=== PATIENT | male | born 1935 | race Caucasian/White ===

== ENCOUNTER → 2018-11-15 | Outpatient (REF) | payer MEDICARE, BC ==
[2018-11-15 10:08] LABS: INTERNATIONAL NORMALIZED RATIO 1.9 RATIO (0.7-1.3); PROTHROMBIN TIME 19.4 SECONDS (9.0-12.5)
[2018-11-15 10:24] LABS: CHOLESTEROL HDL RATIO 4.6 (<4.4 (CALC))
== END | disposition home or self-care (01) ==
LOC: LAB 08:57
PROVIDERS: ATTEND Internal Medicine Cardiovascular Disease
DX: I48.2 Chronic atrial fibrillation (principal); I25.10 Atherosclerotic heart disease of native coronary artery without angina pectoris; E11.59 Type 2 diabetes mellitus with other circulatory complications

== ENCOUNTER → 2018-11-23 | Outpatient (REF) | payer MEDICARE, BC ==
[2018-11-23 13:42] LABS: INTERNATIONAL NORMALIZED RATIO 2.4 RATIO (0.7-1.3); PROTHROMBIN TIME 25.1 SECONDS (9.0-12.5)
== END | disposition home or self-care (01) ==
LOC: LAB 12:59
PROVIDERS: ATTEND Internal Medicine Cardiovascular Disease
DX: I48.2 Chronic atrial fibrillation (principal)

== ENCOUNTER 2020-09-17 20:43 | Emergency (ER) | payer MEDICARE, BC ==
[~2020-09-17] VITALS: Ht 180.3 cm; Wt 100.0 kg
[2020-09-17] MEDS ORDERED: FENOFIBRATE145 MG PO (21:15)
[2020-09-17] MEDS ORDERED: METFORMIN500 M2 PO (21:15)
[2020-09-17] MEDS ORDERED: DIGOXIN0.125 MG PO (21:16)
[2020-09-17] MEDS ORDERED: FUROSEMIDE20 MG PO (21:16)
[2020-09-17] MEDS ORDERED: DICYCLOMINE10 MG PO (21:17)
[2020-09-17] MEDS ORDERED: METOPROL TAR25 MG PO (21:18)
[2020-09-17] MEDS ORDERED: RAMIPRIL2.5 MG PO (21:18)
[2020-09-17] MEDS ORDERED: NORVASC5 M1 PO (21:19)
[2020-09-17] MEDS ORDERED: SPIRONOLACTONE25 MG PO (21:19)
[2020-09-17] MEDS ORDERED: WARFARIN2 MG PO (21:20)
[2020-09-17] MEDS ORDERED: ATORVASTATIN CA10 MG PO (21:20)
[2020-09-17] MEDS ORDERED: PROBIOTIC PO (21:20)
[2020-09-17 21:28] LABS: HEMATOCRIT 32.8 % (39.0-50.0); HEMOGLOBIN 10.1 g/dl (14.0-18.0); IMMATURE GRANULOCYTES 0.3 % (0.0-5.0); MEAN CELL VOLUME 92.7 fL CALC (80.0-100.0); MEAN CORPUSCULAR HGB 28.5 pG CALC (26.0-32.0); MEAN CORPUSCULAR HGB CONC 30.8 g/dL CAL (32.0-36.0); NEUT# 5.41 thou/uL (1.82-7.42); RED BLOOD COUNT 3.54 mill/uL (4.70-6.10); RED CELL DISTRI WIDTH 14.9 % (11.5-15.5)
[2020-09-17 21:48] LABS: ALBUMIN 3.6 g/dL (3.2-5.0); ALKALINE PHOSPHATASE 54 u/l (38-126); ANION GAP 14 (6-22 (CALC)); BILIRUBIN, TOTAL 0.4 mg/dL (0.0-1.4); BUN 19 mg/dL (8-23); BUN/CREATININE RATIO 21 (12-20 (CALC)); CARBON DIOXIDE 23 mmol/l (22-30); CHLORIDE 106 mmol/l (95-108); CREATININE 0.9 mg/dL (0.7-1.3); GFR > 60 ML/MIN (>=60 (CALC)); GFR FOR AFR.AMER. > 60 ML/MIN (>=60 (CALC)); SGOT/AST 25 u/l (19-48); SODIUM 138 mmol/l (137-146); TOTAL PROTEIN 6.5 g/dL (6.3-8.2)
[2020-09-17 21:53] LABS: ACT PARTIAL THROMBO TIME 31.3 SECONDS (20.0-32.5)
[2020-09-17 22:04] LABS: INTERNATIONAL NORMALIZED RATIO 1.3 RATIO (0.7-1.3); PROTHROMBIN TIME 12.6 SECONDS (9.0-12.5)
[2020-09-17 23:15] VITALS: BP 152/70
== END 2020-09-17 23:15 | disposition home or self-care (01) ==
LOC: ED 20:43
PROC: 0HQ0XZZ Repair Scalp Skin, External Approach (ICD-10-PCS; principal; 2020-09-17)
DX: S01.01XA Laceration without foreign body of scalp, initial encounter (principal); U07.1 COVID-19; I10 Essential (primary) hypertension; E11.9 Type 2 diabetes mellitus without complications; F03.90 Unspecified dementia, unspecified severity, without behavioral disturbance, psychotic disturbance, mood disturbance, and anxiety; W01.198A Fall on same level from slipping, tripping and stumbling with subsequent striking against other object, initial encounter; Y92.000 Kitchen of unspecified non-institutional (private) residence as the place of occurrence of the external cause; Z79.84 Long term (current) use of oral hypoglycemic drugs; Z95.810 Presence of automatic (implantable) cardiac defibrillator

== ENCOUNTER 2020-09-26 12:08 | Emergency (ER) | payer MEDICARE, BC ==
[~2020-09-26] VITALS: Ht 180.3 cm; Wt 80.0 kg
[~2020-09-26 12:08] MED LIST: ATORVASTATIN CA10 MG PO; DICYCLOMINE10 MG PO; DIGOXIN0.125 MG PO; FENOFIBRATE145 MG PO; FUROSEMIDE20 MG PO; METFORMIN500 M2 PO; METOPROL TAR25 MG PO; NORVASC5 M1 PO; PROBIOTIC PO; RAMIPRIL2.5 MG PO; SPIRONOLACTONE25 MG PO; WARFARIN2 MG PO
[2020-09-26 12:39] VITALS: BP 120/71
== END 2020-09-26 12:47 | disposition home or self-care (01) ==
LOC: ED 12:08
DX: S01.01XD Laceration without foreign body of scalp, subsequent encounter (principal); I10 Essential (primary) hypertension; E11.9 Type 2 diabetes mellitus without complications; F03.90 Unspecified dementia, unspecified severity, without behavioral disturbance, psychotic disturbance, mood disturbance, and anxiety; E78.00 Pure hypercholesterolemia, unspecified; X58.XXXD Exposure to other specified factors, subsequent encounter; Z79.84 Long term (current) use of oral hypoglycemic drugs

== ENCOUNTER 2022-03-07 18:55 | Emergency (ER) | payer MEDICARE ==
[~2022-03-07] VITALS: Ht 180.3 cm; Wt 72.7 kg
[2022-03-07] VITALS (18 sets, daily range): BP systolic 108–155; BP diastolic 54–116
[2022-03-07] MEDS ORDERED: REMERON15 MG PO (19:18)
[2022-03-07] MEDS ORDERED: ARICEPT PO (19:18)
[2022-03-07 19:54] LABS: HEMATOCRIT 30.7 % (39.0-50.0); HEMOGLOBIN 9.3 g/dl (14.0-18.0); IMMATURE GRANULOCYTES 0.3 % (0.0-5.0); MEAN CELL VOLUME 96.2 fL CALC (80.0-100.0); MEAN CORPUSCULAR HGB 29.2 pG CALC (26.0-32.0); MEAN CORPUSCULAR HGB CONC 30.3 g/dL CAL (32.0-36.0); NEUT# 5.23 thou/uL (1.82-7.42); RED BLOOD COUNT 3.19 mill/uL (4.70-6.10); RED CELL DISTRI WIDTH 17.2 % (11.5-15.5)
[2022-03-07 20:10] LABS: ALKALINE PHOSPHATASE 66 u/l (38-126); AMYLASE 86 u/l (30-110); ANION GAP 10 (6-22 (CALC)); BILIRUBIN, TOTAL 0.4 mg/dL (0.0-1.4); BUN 23 mg/dL (8-23); BUN/CREATININE RATIO 21 (12-20 (CALC)); CARBON DIOXIDE 29 mmol/l (22-30); CHLORIDE 102 mmol/l (95-108); CREATININE 1.1 mg/dL (0.7-1.3); GFR FOR AFR.AMER. > 60 ML/MIN (>=60 (CALC)); GFR OTHER RACES > 60 ML/MIN (>=60 (CALC)); LIPASE 161 u/l (23-300); POTASSIUM 4.7 mmol/l (3.5-5.1); SGOT/AST 36 u/l (19-48); SODIUM 136 mmol/l (137-146); TOTAL PROTEIN 6.5 g/dL (6.3-8.2)
[2022-03-07 20:19] LABS: MYOGLOBIN 39 ng/mL (0 - 121)
[2022-03-07 20:23] LABS: DIGOXIN 1.1 ng/mL (0.8-2.0)
[2022-03-07 20:27] LABS: URINE BILIRUBIN - DIPSTICK NEGATIVE (NEGATIVE); URINE BLOOD DIPSTICK NEGATIVE (NEGATIVE); URINE COLOR YELLOW; URINE GLUCOSE - DIPSTICK NEGATIVE (NEGATIVE); URINE KETONE NEGATIVE (NEGATIVE); URINE LEUK ESTERASE NEGATIVE (NEGATIVE); URINE PH 5.5 (4.5-8.0); URINE PROTEIN - DIPSTICK NEGATIVE (NEG-TRACE); URINE UROBILINOGEN - DIPSTICK 0.2 E.U./dL (0.2)
[2022-03-07 20:29] LABS: URINE NITRITE - DIPSTICK NEGATIVE (Negative)
[2022-03-07] MEDS ORDERED: MIRALAX17 GM PO (22:44)
== END 2022-03-07 23:45 | disposition home or self-care (01) ==
LOC: ED 18:55
PROVIDERS: Emergency Medicine
DX: K59.00 Constipation, unspecified (principal); I10 Essential (primary) hypertension; E11.9 Type 2 diabetes mellitus without complications; E78.00 Pure hypercholesterolemia, unspecified; F03.90 Unspecified dementia, unspecified severity, without behavioral disturbance, psychotic disturbance, mood disturbance, and anxiety; Z95.810 Presence of automatic (implantable) cardiac defibrillator; Z20.822 Contact with and (suspected) exposure to COVID-19
CPT/HCPCS: Q9967

== ENCOUNTER 2022-05-08 16:03 | Observation (INO) | payer MEDICARE ==
[~2022-05-08] VITALS: Ht 180.3 cm; Wt 72.0 kg
[2022-05-08] VITALS (7 sets, daily range): BP systolic 93–112; BP diastolic 44–60
[~2022-05-08 16:03] MED LIST changes: +ALDACTONE25 MG PO; +ALTACE10 MG PO; +ARICEPT PO; -ATORVASTATIN CA10 MG PO; +ATORVASTATIN CA40 MG PO; -DIGOXIN0.125 MG PO; -FENOFIBRATE145 MG PO; +FENOFIBRATE160 MG PO; -FUROSEMIDE20 MG PO; +LANOXIN0.125 MG PO; +LASIX 20 MG TAB20 MG PO; +METOPROL TAR100 MG PO; -METOPROL TAR25 MG PO; +MIRALAX17 GM PO; +PROBIOTI2 PO; -PROBIOTIC PO; -RAMIPRIL2.5 MG PO; +REMERON15 MG PO; -SPIRONOLACTONE25 MG PO
--- NOTE | 2022-05-08 16:10 | NUR ---
PT TO ROOM EMS
[2022-05-08 16:40] LABS: HEMOGLOBIN 9.8 g/dl (14.0-18.0); IMMATURE GRANULOCYTES 0.3 % (0.0-5.0); MEAN CELL VOLUME 95.2 fL CALC (80.0-100.0); MEAN CORPUSCULAR HGB 29.2 pG CALC (26.0-32.0); MEAN CORPUSCULAR HGB CONC 30.6 g/dL CAL (32.0-36.0); NEUT# 5.45 thou/uL (1.82-7.42); RED BLOOD COUNT 3.36 mill/uL (4.70-6.10); RED CELL DISTRI WIDTH 16.5 % (11.5-15.5)
[2022-05-08 16:49] LABS: ALBUMIN 2.9 g/dL (3.2-5.0); ALKALINE PHOSPHATASE 99 u/l (38-126); ANION GAP 10 (6-22 (CALC)); BILIRUBIN, TOTAL 0.4 mg/dL (0.0-1.4); BUN 30 mg/dL (8-23); BUN/CREATININE RATIO 31 (12-20 (CALC)); CARBON DIOXIDE 26 mmol/l (22-30); CHLORIDE 108 mmol/l (95-108); GFR FOR AFR.AMER. > 60 ML/MIN (>=60 (CALC)); GFR OTHER RACES > 60 ML/MIN (>=60 (CALC)); POTASSIUM 4.7 mmol/l (3.5-5.1); SGOT/AST 47 u/l (19-48); SODIUM 140 mmol/l (137-146); TOTAL PROTEIN 6.5 g/dL (6.3-8.2)
[2022-05-08 16:56] LABS: INTERNATIONAL NORMALIZED RATIO 3.8 RATIO (0.7-1.3); PROTHROMBIN TIME 35.2 SECONDS (9.0-12.5)
[2022-05-08 17:01] LABS: MYOGLOBIN 88 ng/mL (0 - 121)
--- NOTE | 2022-05-08 17:08 | NUR ---
PT AWAITING CT SCAN RESULTS, PT RESTING WITH NO NEEDS, FAMILY AT BEDSIDE.
--- NOTE | 2022-05-08 18:41 | NUR ---
PT TO BE ADMITTED
--- NOTE | 2022-05-08 18:55 | NUR ---
PT IN ROOM ON MONITOR WITH FAMILY AT BEDSIDE, PENDING ADMISSION, WILL CONT TO MONITOR.
--- NOTE | 2022-05-08 20:45 | NUR ---
REPORT RECEIVED FROM Jes COATS RN
--- NOTE | 2022-05-08 20:46 | NUR ---
REPORT CALLED TO [facility] [place]
--- NOTE | 2022-05-08 20:58 | NUR ---
PATIENT ASSESMENT COMPLETED AT THIS TIME. ALERT AND ORIENTED TO SELF, KNOW HIS NAME AND , IS COFUSED AND FREQUESTLY REORIENTED TO PLACE AND SITUATION. REGULAR HEART SOIUNDS, TELE IN PLACE CURRENTLY PACED IN 70'S. CLEAR LUNG SOUNDS BILATERALLY. ACTIVE BOWEL SOUNDS, LAST BOWEL MOVENET PER PATIENT WAS THIS MORNING 05/08. NEURO CHECK COMPLETED, PER DAUGHTER AT BEDSIDE, THIS IS PATIENTS BASELINE BEHAVIOR. LACERATION TO BACK OF HEAD, PER ED RN Jes COATS NO BLEEDING NOTED UPON ARRIVAL, NO BLEEDING NOTED THROUGH CURRENT DRESSING PRESSURE DRESSING IN PLACE DUE TO THE FACT PATIENT IS CURRENTLY ON WARFARIN THERAPY, CHANGE TO BE COMPLETED Q SHIFT. #20 IN RAC FLUSHED AND PATENT, ORDER OF NORMAL SALINE AT 100ML/HR TO BE HUNG UPON PHARMACY VERIFICATION. ATTEMPTS MADE TO EDUCATE PATIENT ON PLAN OF CARE AND MEDICATIONS, PATIENT NOT INTERESTED R/T COGNITIVE STATUS. CALL LIGHT PROVIDED TO PATIENT, BED ALARM INITATED FOR SAFETY.
--- NOTE | 2022-05-08 21:04 | NUR ---
Admission Note Report Given to: TAMMY BENOIT Transported by: Wheelchair X Stretcher Transported with: X Nurse Transporter X Patent IV O2 X Practical Nursing Teacher Location: ICU X MS2 PT ADMITTED TO [facility] VIA STRETCHER ON TELE.
--- NOTE | 2022-05-08 21:30 | NUR ---
MEDICATIONS REVIEWED VIA PHNE WITH PATIENTS DAUGHTER. ALL MEDICATION DOSES AND LAST TAKEN TIMES REVIEWED AND ACCOUNTED FOR.
--- NOTE | 2022-05-08 23:00 | NUR ---
@2230 PATIENT PULLED OUT OWN IV, IV INTACT AND DISCARDED IN HSARPS CONTAINER. PER PATIENT HE DOES NOT WANT TO BE POKED, HE DOES NOT WANT ANOTHER IV, HE WILL TAKE IT OUT HE REPORTS. @2300NOTIFIED B STACEY MORA, NOT FURTHER ORDERS RECEIVED.
--- NOTE | 2022-05-08 23:22 | NUR ---
NOTIFIED RN INTERVENTIONAL THAT PATIENT WOULD LIKE TO CALL DAUGHTER AND GO HOME, PATIENT AGREED TO STAY.
[2022-05-09] VITALS (10 sets, daily range): BP systolic 103–129; BP diastolic 53–68
--- NOTE | 2022-05-09 04:00 | NUR ---
PATIENT UP USING THE RESTROOM WITH ASSITANCE X1. PATIENT ABLE TO REMEMEBR TO USE CALL LIGHT, SENIOR SALES MANAGER IN ROOM FOR ADDED SAFETY.
[2022-05-09 05:42] LABS: HEMATOCRIT 27.8 % (39.0-50.0); HEMOGLOBIN 8.6 g/dl (14.0-18.0); IMMATURE GRANULOCYTES 0.2 % (0.0-5.0); MEAN CELL VOLUME 95.2 fL CALC (80.0-100.0); MEAN CORPUSCULAR HGB 29.5 pG CALC (26.0-32.0); MEAN CORPUSCULAR HGB CONC 30.9 g/dL CAL (32.0-36.0); NEUT# 5.27 thou/uL (1.82-7.42); RED BLOOD COUNT 2.92 mill/uL (4.70-6.10); RED CELL DISTRI WIDTH 16.8 % (11.5-15.5)
[2022-05-09 05:47] LABS: INTERNATIONAL NORMALIZED RATIO 3.1 RATIO (0.7-1.3); PROTHROMBIN TIME 29.4 SECONDS (9.0-12.5)
[2022-05-09 06:01] LABS: ANION GAP 12 (6-22 (CALC)); BUN 29 mg/dL (8-23); BUN/CREATININE RATIO 29 (12-20 (CALC)); CARBON DIOXIDE 26 mmol/l (22-30); CHLORIDE 106 mmol/l (95-108); GFR FOR AFR.AMER. > 60 ML/MIN (>=60 (CALC)); GFR OTHER RACES > 60 ML/MIN (>=60 (CALC)); POTASSIUM 4.7 mmol/l (3.5-5.1); SODIUM 139 mmol/l (137-146)
--- NOTE | 2022-05-09 07:17 | NUR ---
PT RESTING IN LOW FOWLERS POSITION. A/OX2 PT AWARE OF IN HOSPITALS . PT DOES NOT KNOW MONTH. PT ABLE TO STATE NAME AND . PT ASSESSMENT AND VS COMPLETED. HEART RHYHTHM NORMAL.ON TELE PACER. BOWEL SOUNDS ACTIVE. RESPIRATIONS EVEN AND UNLABORED. NO IV SITE. COMMERCIAL AIRPLANE PILOT AWARRE. ON ROOM AIR. HEAD DRESSING CDI. ALL SAFETY PRECAUTIONS IN PLACE WITH BED ALARM ACTIVE. CALL LIGHT IN REACH,.
[2022-05-09] MEDS ORDERED: VITAMIN D32000 UNI2 PO (11:23)
[2022-05-09] MEDS ORDERED: WARFARIN SODIU2.5 M1 PO (11:23)
[2022-05-09] MEDS ORDERED: CORRECTOL100 MG PO (11:24)
[2022-05-09] MEDS ORDERED: CVS FLUTICASON50 MCG NAB (11:25)
--- NOTE | 2022-05-09 11:55 | NUR ---
PT TO BE TRANSFERED TO CT SOON AND URINE TO BE COLLECTED. ALL SAFETY PRECAUTIONS IN PLACE.
--- NOTE | 2022-05-09 13:34 | NUR ---
PT TRANSPORTED TO CT PER VOLUNTEER. ALL SAFETY PRECAUTIONS IN PLACE
--- NOTE | 2022-05-09 13:47 | NUR ---
PT ARRIVED BACK TO FLOOR .
[2022-05-09 16:12] LABS: URINE BILIRUBIN - DIPSTICK NEGATIVE (NEGATIVE); URINE BLOOD DIPSTICK NEGATIVE (NEGATIVE); URINE CLARITY CLEAR; URINE COLOR YELLOW; URINE GLUCOSE - DIPSTICK NEGATIVE (NEGATIVE); URINE KETONE NEGATIVE (NEGATIVE); URINE LEUK ESTERASE NEGATIVE (Negative); URINE NITRITE - DIPSTICK NEGATIVE (Negative); URINE PROTEIN - DIPSTICK NEGATIVE (NEG-TRACE); URINE UROBILINOGEN - DIPSTICK 0.2 E.U./dL (0.2)
--- NOTE | 2022-05-09 16:20 | NUR ---
PT RESTING IN LOW FOWLERS POSITION. ADMINISTERED MEDICATIONS AND ASSISTED TO TOILET. PT X2 ASSIST . NEW IV SITE TO LEFT FOREARM. IV FLUIDS RUNNING AT 50 . PT RESTING AT THE MOMENT. FAMILY AT BEDSIDE. PT DENIES OTHER NEEDS ALLS SAFETY PRECAUTIONS IN PLACE
--- NOTE | 2022-05-09 20:31 | NUR ---
PT SLEEPING, AWOKE TO MY VOICE. VERY [place] AND UNABLE TO ANSWER MY QUESTIONS APPROPRIATLEY/CONFUSED. SPEECH IS CLEER. DRESSING TO HEAD CDI. SAFETY MEASURES ARE IN PLACE W/BED ALARM ON.
--- NOTE | 2022-05-09 21:30 | NUR ---
PT SLEEPING AT THIS TIME. NO S/O DISTRESS NOTED. DRESSING STILL IN PLACE TO HEAD CDI. BED ALARM ON.
--- NOTE | 2022-05-10 00:14 | NUR ---
PT IS AWAKE, CHEESE SPRAYER JUST IN TO OBTAIN V/S, NO S/O DISTRESS NOTED.
--- NOTE | 2022-05-10 03:15 | NUR ---
PT REMAINS AWAKE ASKING ABOUT HIS AND WHEN HE CAN GO HOME. PT IS CONFUSED BASELINE, HE ASKED FOR COFFEE/PROVIDED ALONG W/REASSURANCE OF HIS RETURNING IN THE MORNING. PT ORIENTED TO TIME OF NIGHT AND CIRCUMSTANCE.
[2022-05-10 03:55] VITALS: BP 126/63
--- NOTE | 2022-05-10 04:13 | NUR ---
AUTO MECHANICS TEACHER IN WITH PT. HE WAS SLEEPING WE ENTERED THE ROOM. NO S/O DISTRESS NOTED. BED ALARM REMAINS ON. DRESSING TO HEAD REMAINS CDI.
[2022-05-10 05:00] LABS: HEMATOCRIT 29.6 % (39.0-50.0); HEMOGLOBIN 9.2 g/dl (14.0-18.0); IMMATURE GRANULOCYTES 0.2 % (0.0-5.0); MEAN CELL VOLUME 95.8 fL CALC (80.0-100.0); MEAN CORPUSCULAR HGB 29.8 pG CALC (26.0-32.0); MEAN CORPUSCULAR HGB CONC 31.1 g/dL CAL (32.0-36.0); NEUT# 6.88 thou/uL (1.82-7.42); RED BLOOD COUNT 3.09 mill/uL (4.70-6.10); RED CELL DISTRI WIDTH 16.7 % (11.5-15.5)
[2022-05-10 05:14] LABS: INTERNATIONAL NORMALIZED RATIO 2.5 RATIO (0.7-1.3); PROTHROMBIN TIME 23.8 SECONDS (9.0-12.5)
[2022-05-10 06:19] VITALS: BP 132/61
--- NOTE | 2022-05-10 07:26 | NUR ---
PT RESTING IN LOW FOWLERS POSITION.A/OX2 WITH CONFUSION.ASSESSMENT AND VSCOMPLETED. HEART RHYTHM PACED ON TELE. RESPIRATIONS EVEN AND UNLABORED. BOWEL SOUNDS ACTIVE. PT DENIES PAIN. DRESSING TO HEAD CDI.TO BE CHANGED PER ORDER QS. IV SITE NOTED TO LFAINFUSING WITH NS. PT DENIES ADDITIONALNEEDSA AT THE TIME ALLSAFETY PRECAUTIONS IN [place] WITH BA ACTIVE.
[2022-05-10 10:36] VITALS: BP 130/75
--- NOTE | 2022-05-10 12:11 | NUR ---
PT TO BE DC PER PROVIDER. FAMILY AWARE.
--- NOTE | 2022-05-10 13:00 | NUR ---
IV REMOVED TELE REMOVED.Discharge instructions given. Patient verbalizes understanding of same. Discharged in stable condition via Wheelchair to Home with staff. All belongings sent with pt.
== END 2022-05-10 12:59 ==
LOC: ED 16:03 → ED-I 18:30 → ED 18:47 → MS2 18:48
PROVIDERS: Emergency Medicine; Nurse Practitioner; ADMIT Internal Medicine; ATTEND Internal Medicine
DX: S01.01XA Laceration without foreign body of scalp, initial encounter (principal); R53.1 Weakness; I10 Essential (primary) hypertension; I48.91 Unspecified atrial fibrillation; F03.90 Unspecified dementia, unspecified severity, without behavioral disturbance, psychotic disturbance, mood disturbance, and anxiety; E78.00 Pure hypercholesterolemia, unspecified; W01.0XXA Fall on same level from slipping, tripping and stumbling without subsequent striking against object, initial encounter; Y92.009 Unspecified place in unspecified non-institutional (private) residence as the place of occurrence of the external cause; Z79.01 Long term (current) use of anticoagulants; Z95.810 Presence of automatic (implantable) cardiac defibrillator; Z91.81 History of falling; Z20.822 Contact with and (suspected) exposure to COVID-19